=== PATIENT | female | born 1975 | race Two or more races ===

== ENCOUNTER 2016-06-18 05:52 | Inpatient (IN) | payer OTHER ==
[2016-06-15 12:47] LABS: HEMOGLOBIN 16.3 g/dL (11.7-16.4)
[2016-06-15 12:56] LABS: ASPARTATE AMINO TRANSFERASE 19 U/L (15-37); BLOOD UREA NITROGEN 14 mg/dL (7-18)
[~2016-06-18] VITALS: Ht 162.6 cm; Wt 107.2 kg
[~2016-06-18 05:52] MED LIST: AMLO10TA2 PO; BUPR150T73 PO; CLON-275 PO; CYCL-259 PO; FURO20TA3 PO; LOSA1TAB17 PO; MELO-184 PO; METO200T2 PO
[2016-06-18] MEDS ORDERED: LACTATED RINGERS 1,000 ML IV SCH (06:36)
[2016-06-18] MEDS ORDERED: BUPIVACAINE/PF 0.5% ONE (06:50)
[2016-06-18] MEDS ORDERED: BACITRACIN OINT 500U/GM, 15 GM ONE (06:50)
[2016-06-18] MEDS ORDERED: THROMBIN 5,000 UNIT VIAL TP ONE ×2 (06:50→09:50)
[2016-06-18 07:04] VITALS: BP 119/82
[2016-06-18 07:07] LABS: HCG UR OBC PASS
[2016-06-18] MEDS ORDERED: MIDAZOLAM 1 MG/ML, 2ML ONE (07:10)
[2016-06-18] MEDS ORDERED: FENTANYL PF 250 MCG/5ML ONE (07:10)
[2016-06-18] MEDS ORDERED: ONDANSETRON 2MG/ML, 2ML IVPush PRN ×2 (08:00→11:30)
[2016-06-18] MEDS ORDERED: SENNA/DOCUSATE TABLET PO PRN (08:00)
[2016-06-18] MEDS ORDERED: DIPHENHYDRAMINE 50 MG/ML, 1ML IVPush PRN (08:00)
[2016-06-18] MEDS ORDERED: METHOCARBAMOL 750 MG TABLET PO PRN (08:00)
[2016-06-18] MEDS ORDERED: BISACODYL 10 MG SUPP PR PRN (08:00)
[2016-06-18] MEDS ORDERED: MAGNESIUM HYDROXIDE 8%, 30ML UDC PO PRN (08:00)
[2016-06-18] MEDS ORDERED: HYDROcodone/APAP 5/325 TABLET PO PRN (08:00)
[2016-06-18] MEDS: LABETALOL 5MG/ML 40ML VIAL IVPush SCH ×2 (08:00→15:43)
[2016-06-18] MEDS ORDERED: PHARMACY MAY ADJ FOR RENAL FX MC PRN (08:00)
[2016-06-18] MEDS: METOPROLOL SUCCINATE 100 MG TAB.ER.24H PO SCH ×2 (09:00→20:46)
[2016-06-18] MEDS ORDERED: TEMPLATE NON-FORMULARY MED. (Clonidine Hcl** (Clonidine Hcl Er**) 0.1 MG) HOMEMEDPO SCH (09:00)
[2016-06-18] MEDS: FUROSEMIDE 40 MG TABLET PO SCH (09:00)
[2016-06-18] MEDS: BUPROPION SR 150 MG TABLET PO SCH ×2 (09:00→20:46)
[2016-06-18] MEDS: AMLODIPINE 5 MG TABLET PO SCH (09:00)
[2016-06-18] MEDS: LOSARTAN 50MG TABLET PO SCH (09:00)
[2016-06-18] MEDS ORDERED: HYDROmorphone 2 MG/ML, 1ML ONE (11:29)
[2016-06-18] MEDS ORDERED: FENTANYL PF 100 MCG/2ML ONE (11:29)
[2016-06-18] MEDS ORDERED: ACETAMINOPHEN 650 MG/20.3 ML UDC ONE (11:29)
[2016-06-18] MEDS ORDERED: ACETAMINOPHEN 325 MG TABLET ONE (11:29)
[2016-06-18] MEDS ORDERED: hydrALAzine 20 MG/ML, 1ML IV PRN (11:30)
[2016-06-18] MEDS ORDERED: LABETALOL 5MG/ML, 20ML IV PRN (11:30)
[2016-06-18] MEDS ORDERED: METOCLOPRAMIDE 5 MG/ML, 2ML IV PRN (11:30)
[2016-06-18] MEDS ORDERED: OXYcodone 5 MG/5 ML ORAL.SOL UDC ONE (11:30)
[2016-06-18] MEDS ORDERED: ACETAMINOPHEN 325 MG TABLET PO PRN (11:30)
[2016-06-18] MEDS ORDERED: OXYcodone 5 MG/5 ML ORAL.SOL UDC PO PRN (11:30)
[2016-06-18] MEDS: FENTANYL PF 100 MCG/2ML IV PRN ×2 (11:30→11:40)
[2016-06-18] MEDS ORDERED: DIAZEPAM 5 MG/ML, 2ML ONE (11:45)
[2016-06-18] MEDS: HYDROmorphone 1 MG/ML, 1ML IV PRN ×4 (12:00→12:45)
[2016-06-18] MEDS ORDERED: DIAZEPAM 5 MG/ML, 2ML IVPush PRN (12:30)
[2016-06-18] MEDS: morphine SULFATE 10 MG/ML, 1ML IVPush PRN ×2 (14:33→21:07)
[2016-06-18] MEDS: CEFAZOLIN PMX 1GM/50ML 50 ML IVPB SCH ×2 (15:49→23:22)
[2016-06-18] MEDS: OXYcodone/APAP 5/325MG TABLET PO PRN ×2 (15:49→20:46)
[2016-06-18] MEDS: D5%-0.9% NACL+KCL 20MEQ 1,000 ML IV SCH (15:49)
[2016-06-18] MEDS ORDERED: PROPOFOL 10 MG/ML, 50ML ONE (15:55)
[2016-06-18] MEDS ORDERED: SUCCINYLCHOLINE 20 MG/ML, 10ML ONE (15:55)
[2016-06-18] MEDS ORDERED: ONDANSETRON 2MG/ML, 2ML ONE (15:55)
[2016-06-18] MEDS ORDERED: ROCURONIUM 10 MG/ML ONE (15:55)
[2016-06-18] MEDS ORDERED: DEXAMETHASONE 4 MG/ML, 1ML ONE (15:55)
[2016-06-18] MEDS ORDERED: CEFAZOLIN 1,000 MG ONE (15:55)
[2016-06-18] MEDS ORDERED: [UNRECOGNIZED DRUG - REMARK] XX SCH (16:00)
[2016-06-18 19:28] VITALS: BP 117/77
[2016-06-18 23:33] VITALS: BP 106/67
[2016-06-19] MEDS: OXYcodone/APAP 5/325MG TABLET PO PRN ×4 (00:55→13:24)
[2016-06-19] MEDS: morphine SULFATE 10 MG/ML, 1ML IVPush PRN ×5 (00:55→11:56)
[2016-06-19] MEDS ORDERED: morphine SULFATE 10 MG/ML, 1ML IVPush PRN (02:00)
[2016-06-19] MEDS: D5%-0.9% NACL+KCL 20MEQ 1,000 ML IV SCH ×2 (02:56→11:00)
[2016-06-19 03:52] VITALS: BP 105/69
[2016-06-19 07:06] VITALS: BP 99/58
[2016-06-19] MEDS: LABETALOL 5MG/ML 40ML VIAL IVPush SCH ×2 (08:00)
[2016-06-19] MEDS: BUPROPION SR 150 MG TABLET PO SCH (09:00)
[2016-06-19] MEDS: FUROSEMIDE 40 MG TABLET PO SCH (09:00)
[2016-06-19] MEDS: AMLODIPINE 5 MG TABLET PO SCH (09:00)
[2016-06-19] MEDS: METOPROLOL SUCCINATE 100 MG TAB.ER.24H PO SCH (09:00)
[2016-06-19] MEDS: LOSARTAN 50MG TABLET PO SCH (09:00)
[2016-06-19] MEDS ORDERED: HYDROCHLOROTHIAZIDE 25 MG TABLET PO SCH (09:00)
[2016-06-19 14:47] VITALS: BP 108/71
== END 2016-06-19 16:15 | disposition home or self-care (01) | DRG 460 ==
LOC: ORIP 05:52 → 4NOR 14:12 → DCLOUNGE 06-19 15:25
PROVIDERS: ADMIT Orthopaedic Surgery Orthopaedic Surgery of the Spine; ATTEND Orthopaedic Surgery Orthopaedic Surgery of the Spine
PROC: 0T9B70Z Drainage of Bladder with Drainage Device, Via Natural or Artificial Opening (ICD-10-PCS; 2016-06-15)
PROC: 0SB20ZZ Excision of Lumbar Vertebral Disc, Open Approach (ICD-10-PCS; 2016-06-18)
PROC: 01NB0ZZ Release Lumbar Nerve, Open Approach (ICD-10-PCS; 2016-06-18)
PROC: 4A11X4G Monitoring of Peripheral Nervous Electrical Activity, Intraoperative, External Approach (ICD-10-PCS; 2016-06-18)
PROC: 0SG00AJ Fusion of Lumbar Vertebral Joint with Interbody Fusion Device, Posterior Approach, Anterior Column, Open Approach (ICD-10-PCS; principal; 2016-06-18 07:30)
DX: M48.06 Spinal stenosis, lumbar region (principal); M43.16 Spondylolisthesis, lumbar region; E66.01 Morbid (severe) obesity due to excess calories; F17.210 Nicotine dependence, cigarettes, uncomplicated; I10 Essential (primary) hypertension; Z88.0 Allergy status to penicillin; Z68.37 Body mass index [BMI] 37.0-37.9, adult
CPT/HCPCS: 36415; 71020; 72100; 80053; 81003; 81025; 85025; 93005; C1713; C1767; J0690; J1100; J1170; J2250; J2405; J2704; J3010; J3360; J3490; C1762; J0330; J2270; J3480; J7120